=== PATIENT | male | born 1955 | race Caucasian/White ===

== ENCOUNTER 2017-08-27 07:30 | Emergency (ER) | payer BC ==
[~2017-08-27] VITALS: Ht 182.9 cm; Wt 105.0 kg
[~2017-08-27 07:30] MED LIST: ASPI81TA30 PO; CARV-50 PO; LISI10TA PO; METF500T PO; PRAV20TA4 PO
[2017-08-27] MEDS ORDERED: normal saline 1000ML IV soln IVB ONE ×2 (08:10→09:05)
[2017-08-27 08:35] LABS: BASOPHILS % (AUTO) 0.1 % (0-1); EOSINOPHILS # (AUTO) 0.1 X10'3 (0-0.9); EOSINOPHILS % (AUTO) 0.7 % (0-6); HEMATOCRIT 38.6 % (42.0-52.0); HEMOGLOBIN 13.6 g/dl (14.0-17.9); LYMPHOCYTES # (AUTO) 0.6 X10'3 (1.1-4.8); LYMPHOCYTES % (AUTO) 6.7 % (21-51); MEAN CORPUSCULAR HEMOGLOBIN 30.3 PG (27.0-31.0); MEAN CORPUSCULAR HGB CONC 35.4 % (33.0-36.5); MEAN CORPUSCULAR VOLUME 85.6 FL (78-98); MEAN PLATELET VOLUME 8.1 FL (7.4-10.4); MONOCYTES # (AUTO) 0.8 X10'3 (0-0.9); MONOCYTES % (AUTO) 9.4 % (2-12); NEUTROPHILS % (AUTO) 83.1 % (42-75); PLATELET COUNT 247 X10'3 (140-440); RED BLOOD COUNT 4.51 X10'6 (4.70-6.10); RED CELL DISTRIBUTION WIDTH 13.2 % (11.5-14.5); WHITE BLOOD COUNT 8.5 X10'3 (4.5-11.0)
[2017-08-27 08:51] LABS: ALANINE AMINOTRANSFERASE 43 U/L (12-78); ALBUMIN 2.6 G/DL (3.4-5.0); ALBUMIN/GLOBULIN RATIO 0.6 (1.1-1.5); ALKALINE PHOSPHATASE 81 IU/L (46-116); ANION GAP 5 (8-16); ASPARTATE AMINO TRANSFERASE 21 U/L (10-37); BLOOD UREA NITROGEN 20 MG/DL (7-18); BUN/CREATININE RATIO 12.7 (5.4-32.0); CALCIUM 8.8 MG/DL (8.5-10.1); CHLORIDE 91 MMOL/L (99-107); CREATININE 1.57 MG/DL (0.60-1.10); POTASSIUM 4.2 MMOL/L (3.5-5.1); SODIUM 128 MMOL/L (135-145); eGFR 45 ML/MIN
[2017-08-27 08:53] LABS: GLUCOSE 510 MG/DL (70-104)
[2017-08-27] MEDS ORDERED: insulin regular, human 10 units/0.1 ml syringe IV ONE (09:05)
[2017-08-27 11:31] VITALS: BP 111/54
== END 2017-08-27 11:33 | disposition home or self-care (01) ==
LOC: ER 07:31
DX: E11.65 Type 2 diabetes mellitus with hyperglycemia (principal); R19.7 Diarrhea, unspecified; I10 Essential (primary) hypertension; Z86.718 Personal history of other venous thrombosis and embolism; Z79.82 Long term (current) use of aspirin; Z79.84 Long term (current) use of oral hypoglycemic drugs; Z79.899 Other long term (current) drug therapy
CPT/HCPCS: 36415; 80053; 82948; 85025; 96361; 96374; 99285; J1815; J7030

== ENCOUNTER 2021-12-08 14:01 | Inpatient (IN) | payer MEDICAID ==
[~2021-12-08] VITALS: Ht 180.3 cm; Wt 105.0 kg
--- NOTE | 2021-12-08 15:18 | NUR ---
Patient in room [facility]A. I have received report from KEV GUTIERREZ FROM OUTPATIENT WOUND CARE and had the opportunity to ask questions and assume patient care.
[2021-12-08] MEDS ORDERED: dextrose 50%-water 50ml dispensing syringe IV PRN ×2 (15:20)
[2021-12-08] MEDS ORDERED: HYDROmorphone/PF 0.2 MG/ML SYRINGE IV PRN (15:20)
[2021-12-08] MEDS ORDERED: magnesium 4gm in 100ml NS 100 ML IV PRN (15:20)
[2021-12-08] MEDS ORDERED: mag hydrox/Alum hydrox/simeth 30ml oral suspension PO PRN (15:20)
[2021-12-08] MEDS ORDERED: POTASSIUM BICARB 20meq eff tab 20 MEQ TABLET.EFF PO PRN (15:20)
[2021-12-08] MEDS ORDERED: magnesium Cl slow-release 64mg tablet PO PRN (15:20)
[2021-12-08] MEDS ORDERED: ondansetron 4mg rapidly disintigrating tab PO PRN (15:20)
[2021-12-08] MEDS ORDERED: HYDROcodone/acetaminophen 5mg/325mg tablet PO PRN (15:20)
[2021-12-08] MEDS ORDERED: DEXTROSE 15 GM of carb/4 tabs (each vial/BOTTLE has 4 tablets) PO PRN ×2 (15:20)
[2021-12-08] MEDS ORDERED: HYDROmorphone inj. 0.5 MG/0.5 ML DISP.SYRIN IV PRN (15:20)
[2021-12-08] MEDS ORDERED: PERFLUTREN PROTEIN-A MICROSPHR (Optison) 0.22 MG/ML 3ML VIAL IV ONE (15:20)
[2021-12-08] MEDS ORDERED: MESSAGE TO PHARMACY PO ONE (15:20)
[2021-12-08] MEDS ORDERED: magnesium 2GM in 50ml NS 50 ML IV PRN (15:20)
[2021-12-08] MEDS ORDERED: magnesium hydroxide 30ml (MOM) UD suspension PO PRN (15:20)
[2021-12-08] MEDS ORDERED: glucagon, human recombinant 1mg kit SUBCUT PRN (15:20)
[2021-12-08] MEDS ORDERED: insulin Lispro (HumaLOG) vial - multi-dose SQ SCH (15:20)
[2021-12-08] MEDS ORDERED: potassium CL 10mEq/100ml bag 100 ML IV PRN (15:20)
[2021-12-08] MEDS ORDERED: acetaminophen 325mg tablet PO PRN ×2 (15:20)
[2021-12-08] MEDS ORDERED: bisacodyl 10mg suppository rectal RC PRN (15:20)
[2021-12-08] MEDS ORDERED: ondansetron/PF 4mg/2ml inj IV PRN (15:20)
[2021-12-08 15:55] LABS: HEMOGLOBIN A1C 8.5 % (4.5-6.2)
[2021-12-08] MEDS ORDERED: PRAV40TA3 PO (15:55)
[2021-12-08] MEDS ORDERED: TRAZ-251 PO (15:55)
[2021-12-08] MEDS ORDERED: LISI20TA28 PO (15:55)
[2021-12-08] MEDS ORDERED: CETI10TA14 PO (15:55)
[2021-12-08] MEDS ORDERED: LIRA0.6P2 SQ (15:55)
[2021-12-08] MEDS ORDERED: DAPA10TA PO (15:55)
[2021-12-08] MEDS ORDERED: ESCI20TA39 PO (15:55)
[2021-12-08] MEDS ORDERED: HYDR-3972 PO (15:55)
[2021-12-08] MEDS ORDERED: PIOG45TA64 PO (15:55)
[2021-12-08 16:03] LABS: APTT 30 SECONDS (22-32)
[2021-12-08 18:27] VITALS: BP 155/82
[2021-12-08] MEDS: K and/or MAG REPLACEMENT MC SCH (19:41)
[2021-12-08] MEDS: HYDROcodone/acetaminophen 10/325mg tab PO PRN (19:54)
[2021-12-08] MEDS: normal saline 1000ml 1,000 ML IV SCH (19:54)
[2021-12-08] MEDS: docusate sod 100mg capsule PO SCH (19:54)
--- NOTE | 2021-12-08 20:17 | NUR ---
Problems reprioritized. Patient report given, questions answered & plan of care reviewed with KEV MORAN.
[2021-12-08 20:43] LABS: ALANINE AMINOTRANSFERASE 14 U/L (12-78); ALBUMIN 2.4 G/DL (3.4-5.0); ALBUMIN/GLOBULIN RATIO 0.5 (1.1-1.5); ALKALINE PHOSPHATASE 77 IU/L (46-116); ANION GAP 12 (8-16); ASPARTATE AMINO TRANSFERASE 11 U/L (10-37); BILIRUBIN,TOTAL 0.4 MG/DL (0.1-1.0); BLOOD UREA NITROGEN 16 MG/DL (7-18); BUN/CREATININE RATIO 15.7 (5.4-32.0); CALCIUM 10.1 MG/DL (8.5-10.1); CHLORIDE 97 MMOL/L (99-107); CREATININE 1.02 MG/DL (0.60-1.10); GLUCOSE 225 MG/DL (70-104); SODIUM 136 MMOL/L (135-145); TOTAL CARBON DIOXIDE 27.4 MMOL/L (24-32); TOTAL PROTEIN 7.4 G/DL (6.4-8.2); eGFR 74 ML/MIN
[2021-12-08] MEDS: traZODone 50mg tablet PO SCH (21:00)
[2021-12-08] MEDS ORDERED: temazepam 15mg capsule PO PRN (21:00)
[2021-12-08] MEDS: insulin glargine (Lantus) pen - multi-dose SQ SCH (21:49)
[2021-12-08 23:03] VITALS: BP 166/88
--- NOTE | 2021-12-08 23:05 | NUR ---
Charting by Adilene MARS reviewed by Virginia Irving RN
[2021-12-09] VITALS (19 sets, daily range): BP systolic 111–181; BP diastolic 64–88
[2021-12-09] MEDS: HYDROcodone/acetaminophen 10/325mg tab PO PRN ×3 (00:39→20:44)
[2021-12-09] MEDS: normal saline 1000ml 1,000 ML IV SCH ×3 (01:20→22:18)
[2021-12-09 06:15] LABS: BASOPHILS # (AUTO) 0.1 X10'3 (0-0.2); BASOPHILS % (AUTO) 0.4 % (0-1); EOSINOPHILS # (AUTO) 0.4 X10'3 (0-0.9); EOSINOPHILS % (AUTO) 3.3 % (0-6); HEMATOCRIT 41.9 % (42.0-52.0); HEMOGLOBIN 13.7 g/dl (14.0-17.9); LYMPHOCYTES # (AUTO) 2.2 X10'3 (1.1-4.8); LYMPHOCYTES % (AUTO) 18.2 % (21-51); MEAN CORPUSCULAR HEMOGLOBIN 27.4 PG (27.0-31.0); MEAN CORPUSCULAR HGB CONC 32.7 g/dL (33.0-36.5); MEAN CORPUSCULAR VOLUME 83.7 FL (78-98); MEAN PLATELET VOLUME 7.1 FL (7.4-10.4); MONOCYTES # (AUTO) 1.3 X10'3 (0-0.9); MONOCYTES % (AUTO) 10.9 % (2-12); NEUTROPHILS # (AUTO) 8.2 X10'3 (1.8-7.7); NEUTROPHILS % (AUTO) 67.2 % (42-75); PLATELET COUNT 479 X10'3 (140-440); RED BLOOD COUNT 5.01 X10'6 (4.70-6.10); RED CELL DISTRIBUTION WIDTH 13.6 % (11.5-14.5); WHITE BLOOD COUNT 12.2 X10'3 (4.5-11.0)
[2021-12-09 06:45] LABS: ALANINE AMINOTRANSFERASE 15 U/L (12-78); ALBUMIN 2.7 G/DL (3.4-5.0); ALBUMIN/GLOBULIN RATIO 0.5 (1.1-1.5); ALKALINE PHOSPHATASE 84 IU/L (46-116); ANION GAP 13 (8-16); ASPARTATE AMINO TRANSFERASE 17 U/L (10-37); BILIRUBIN,TOTAL 0.3 MG/DL (0.1-1.0); BLOOD UREA NITROGEN 14 MG/DL (7-18); BUN/CREATININE RATIO 13.2 (5.4-32.0); CALCIUM 9.7 MG/DL (8.5-10.1); CHLORIDE 97 MMOL/L (99-107); CHOL/HDL RATIO 5.3 (0.00-4.99); CHOLESTEROL 186 MG/DL (0-200); CREATININE 1.06 MG/DL (0.60-1.10); GLUCOSE 135 MG/DL (70-104); HDL CHOLESTEROL 35 MG/DL (35-60); LDL CHOLESTEROL 113 MG/DL (50-100); MAGNESIUM 2.1 MG/DL (1.5-2.4); POTASSIUM 3.1 MMOL/L (3.5-5.1); SODIUM 136 MMOL/L (135-145); TOTAL CARBON DIOXIDE 25.7 MMOL/L (24-32); TOTAL PROTEIN 8.1 G/DL (6.4-8.2); TRIGLYCERIDES 183 MG/DL (20-135); eGFR 70 ML/MIN
[2021-12-09] MEDS ORDERED: sevoflurane 250ml liquid IH ONE (07:31)
[2021-12-09] MEDS ORDERED: midazolam 1 mg/ML 2ml injection ONE (07:33)
[2021-12-09] MEDS ORDERED: fentaNYL/PF 50MCG/1 ML 2ML syringe ONE (07:43)
[2021-12-09] MEDS ORDERED: propofol inj 20 ML IV ONE (07:50)
[2021-12-09] MEDS ORDERED: LIDOcaine 2% (20mg/ml) 5ml vial ONE (07:50)
[2021-12-09] MEDS ORDERED: ROPIVAcaine 0.5% (5mg/ml) 30ml vial ONE (07:50)
[2021-12-09] MEDS ORDERED: ondansetron/PF 4mg/2ml inj ONE (07:51)
[2021-12-09] MEDS ORDERED: vancomycin 1,000mg inj ONE ×2 (07:51→08:27)
[2021-12-09] MEDS: K and/or MAG REPLACEMENT MC SCH ×2 (08:00→20:00)
[2021-12-09] MEDS: LIRAGLUTIDE 0.6 MG/0.1 ML PEN.INJCTR SQ SCH (08:00)
[2021-12-09] MEDS ORDERED: atorvastatin 10mg tablet PO SCH (08:00)
--- NOTE | 2021-12-09 08:11 | NUR ---
Received from OR via BED, accompanied by Anesthesiologist and report given by ADITHYA Anesthesiologist. PATIENT WAKING UP, DENIES PAIN, V/S WNL, 20G TO LEFT FOREARM, DRESSING to LEFT FOOT C/D/I. Addendum: 12/09/21 at 0829 by Toro Brown RN Amended: Links added.
--- NOTE | 2021-12-09 09:03 | NUR ---
Diabetes consult: Pt w/ hx of DM A1c 8.5 per EMR. Pt admitted w/ L foot cellulitis w/ gangrene of toe, going for amputation of left third toe and irrigation debridement of the foot today per MD note. Will provide DM ed once appropriate s/p procedure Addendum: 12/09/21 at [address] Amended: Links added.
--- NOTE | 2021-12-09 09:26 | NUR ---
PATIENT HAS MET ALL CRITERIA FOR TRANSFER TO SURGICAL FLOOR. VSS. DRESSINGS INTACT. BED LOW, CALL LIGHT PRESENT AND 2 RAILS UP. RN PRESENT TO ACCEPT CARE OF PATIENT AND REPORT HAS BEEN CALLED. ALL QUESTIONS ANSWERED TO ACCEPTING RN. Addendum: 12/09/21 at 0936 by Toro Brown RN Amended: Links added.
[2021-12-09] MEDS: pioglitazone 45mg tablet PO SCH (11:19)
[2021-12-09] MEDS: docusate sod 100mg capsule PO SCH (11:20)
[2021-12-09] MEDS: DAPAGLIFLOZIN 10MG TABLET PO SCH (11:20)
[2021-12-09] MEDS: ESCITALOPRAM OXALATE 5 MG TABLET PO SCH (11:21)
[2021-12-09] MEDS: lisinopril 20mg tablet PO SCH (11:22)
[2021-12-09] MEDS: POTASSIUM BICARB 20meq eff tab 20 MEQ TABLET.EFF PO PRN ×3 (11:23→20:48)
[2021-12-09] MEDS: vancomycin/NS 1 GM ADD-VANTAGE 250 ML IV SCH (16:00)
[2021-12-09] MEDS: loperamide 2mg capsule PO PRN (17:31)
[2021-12-09] MEDS: piperacillin/tazo 3.375gm/50ml 50 ML IV SCH (17:52)
[2021-12-09] MEDS: cefazolin/dext.iso 2gm/100ml 100 ML IV SCH (17:52)
--- NOTE | 2021-12-09 18:20 | NUR ---
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 Page sent to Dr Hylton, but it is shift change and Iris Simmons RN is assuming care and is aware I have not heard back from the Dr and will page the NOC doctor regarding results.
--- NOTE | 2021-12-09 18:30 | NUR ---
Patient in room [facility]. I have received report from RONNA ANGULO and had the opportunity to ask questions and assume patient care.
[2021-12-09] MEDS: traZODone 50mg tablet PO SCH (20:43)
[2021-12-09] MEDS: insulin glargine (Lantus) pen - multi-dose SQ SCH (22:19)
[2021-12-10] VITALS: BP 118/60
[2021-12-10] MEDS: piperacillin/tazo 3.375gm/50ml 50 ML IV SCH ×2 (00:14→08:49)
[2021-12-10] MEDS: cefazolin/dext.iso 2gm/100ml 100 ML IV SCH ×2 (00:53→07:10)
[2021-12-10] MEDS: vancomycin/NS 1 GM ADD-VANTAGE 250 ML IV SCH (04:04)
[2021-12-10] MEDS: HYDROcodone/acetaminophen 10/325mg tab PO PRN ×3 (05:40→12:50)
--- NOTE | 2021-12-10 06:35 | NUR ---
Problems reprioritized. Patient report given, questions answered & plan of care reviewed with ANA ANGULO.
[2021-12-10 06:36] LABS: BASOPHILS % (AUTO) 0.6 % (0-1); EOSINOPHILS # (AUTO) 0.4 X10'3 (0-0.9); EOSINOPHILS % (AUTO) 4.3 % (0-6); HEMATOCRIT 35.1 % (42.0-52.0); HEMOGLOBIN 11.8 g/dl (14.0-17.9); LYMPHOCYTES # (AUTO) 0.9 X10'3 (1.1-4.8); LYMPHOCYTES % (AUTO) 11.2 % (21-51); MEAN CORPUSCULAR HEMOGLOBIN 27.8 PG (27.0-31.0); MEAN CORPUSCULAR HGB CONC 33.6 g/dL (33.0-36.5); MEAN CORPUSCULAR VOLUME 82.7 FL (78-98); MEAN PLATELET VOLUME 7.2 FL (7.4-10.4); MONOCYTES # (AUTO) 0.9 X10'3 (0-0.9); MONOCYTES % (AUTO) 11.3 % (2-12); NEUTROPHILS % (AUTO) 72.6 % (42-75); PLATELET COUNT 330 X10'3 (140-440); RED BLOOD COUNT 4.25 X10'6 (4.70-6.10); RED CELL DISTRIBUTION WIDTH 13.8 % (11.5-14.5); WHITE BLOOD COUNT 8.3 X10'3 (4.5-11.0)
--- NOTE | 2021-12-10 06:46 | NUR ---
Patient in room [facility]. I have received report from Iris Simmons RN and had the opportunity to ask questions and assume patient care.
[2021-12-10 06:54] LABS: ALANINE AMINOTRANSFERASE 13 U/L (12-78); ALBUMIN/GLOBULIN RATIO 0.5 (1.1-1.5); ALKALINE PHOSPHATASE 63 IU/L (46-116); ANION GAP 10 (8-16); ASPARTATE AMINO TRANSFERASE 14 U/L (10-37); BILIRUBIN,TOTAL 0.3 MG/DL (0.1-1.0); BLOOD UREA NITROGEN 11 MG/DL (7-18); BUN/CREATININE RATIO 13.9 (5.4-32.0); CALCIUM 8.2 MG/DL (8.5-10.1); CHLORIDE 101 MMOL/L (99-107); CREATININE 0.79 MG/DL (0.60-1.10); GLUCOSE 117 MG/DL (70-104); MAGNESIUM 1.8 MG/DL (1.5-2.4); POTASSIUM 3.8 MMOL/L (3.5-5.1); SODIUM 139 MMOL/L (135-145); TOTAL CARBON DIOXIDE 27.7 MMOL/L (24-32); TOTAL PROTEIN 6.1 G/DL (6.4-8.2); eGFR > 90 ML/MIN
[2021-12-10 06:58] VITALS: BP 130/71
[2021-12-10] MEDS: normal saline 1000ml 1,000 ML IV SCH ×2 (07:20→17:20)
[2021-12-10] MEDS: K and/or MAG REPLACEMENT MC SCH ×2 (07:22→20:00)
[2021-12-10] MEDS: LIRAGLUTIDE 0.6 MG/0.1 ML PEN.INJCTR SQ SCH (08:00)
[2021-12-10] MEDS: pioglitazone 45mg tablet PO SCH (08:33)
[2021-12-10] MEDS: DAPAGLIFLOZIN 10MG TABLET PO SCH (08:35)
[2021-12-10] MEDS: ESCITALOPRAM OXALATE 5 MG TABLET PO SCH (08:37)
[2021-12-10] MEDS: atorvastatin 20mg tablet PO SCH (08:40)
[2021-12-10] MEDS: lisinopril 20mg tablet PO SCH (08:42)
[2021-12-10 11:00] VITALS: BP 143/71
[2021-12-10] MEDS: ciprofloxacin 250mg tablet PO SCH ×2 (11:09→20:28)
--- NOTE | 2021-12-10 11:30 | NUR ---
DIABETIC FOOT CARE EDUCATION PROVIDED BY WOUND CARE * Wash your feet daily with lukewarm water and soap. * Dry your feet well, especially between the toes. * Keep the skin moisturized with lotion, but do not apply it between the toes. * Check your feet for blisters, cuts or sores. * Use an emery board to shape your toenails even with the ends of your toes. * Change daily into clean, soft socks or stockings, not too big or too small. * Keep your feet warm and dry. * Preferably wear special padded socks and shoes that fit well. * Never walk barefoot indoors or outdoors. * Examine your shoes everyday for cracks, monika, nails or anything that could hurt your feet. * Tell your doctor if you find any of these problems or have any concerns after examining your feet. Addendum: 12/10/21 at 1131 by Poly Grimaldo RN Amended: Links added.
[2021-12-10] MEDS ORDERED: CIPR250T4 PO (15:05)
[2021-12-10] MEDS ORDERED: AMOX-580 PO (15:05)
[2021-12-10] MEDS ORDERED: ATOR40TA PO (15:05)
[2021-12-10] MEDS: amox tr/potassium clavulanate 875/125mg TAB PO SCH (17:31)
[2021-12-10 18:00] VITALS: BP 156/76
--- NOTE | 2021-12-10 18:41 | NUR ---
Problems reprioritized. Patient report given, questions answered & plan of care reviewed with Lyla ANGULO.
[2021-12-10] MEDS: traZODone 50mg tablet PO SCH (20:28)
[2021-12-10] MEDS: insulin glargine (Lantus) pen - multi-dose SQ SCH (21:00)
[2021-12-10 22:00] VITALS: BP 144/69
[2021-12-11] MEDS ORDERED: VANCOMYCIN LEVEL IV ONE (02:30)
[2021-12-11] MEDS: normal saline 1000ml 1,000 ML IV SCH ×2 (03:20→13:20)
[2021-12-11] MEDS: HYDROcodone/acetaminophen 10/325mg tab PO PRN (04:51)
[2021-12-11 06:48] VITALS: BP_SYST 79
[2021-12-11 07:12] LABS: BASOPHILS # (AUTO) 0.1 X10'3 (0-0.2); HEMOGLOBIN 12.2 g/dl (14.0-17.9); LYMPHOCYTES # (AUTO) 1.2 X10'3 (1.1-4.8)
[2021-12-11 07:14] LABS: BASOPHILS % (AUTO) 0.8 % (0-1); EOSINOPHILS # (AUTO) 0.4 X10'3 (0-0.9); EOSINOPHILS % (AUTO) 4.4 % (0-6); HEMATOCRIT 35.8 % (42.0-52.0); MEAN CORPUSCULAR HEMOGLOBIN 28.3 PG (27.0-31.0); MEAN CORPUSCULAR HGB CONC 34.2 g/dL (33.0-36.5); MEAN CORPUSCULAR VOLUME 82.9 FL (78-98); MEAN PLATELET VOLUME 7.8 FL (7.4-10.4); MONOCYTES # (AUTO) 0.9 X10'3 (0-0.9); MONOCYTES % (AUTO) 10.6 % (2-12); NEUTROPHILS # (AUTO) 5.7 X10'3 (1.8-7.7); NEUTROPHILS % (AUTO) 69.2 % (42-75); PLATELET COUNT 269 X10'3 (140-440); RED BLOOD COUNT 4.32 X10'6 (4.70-6.10); RED CELL DISTRIBUTION WIDTH 13.7 % (11.5-14.5); WHITE BLOOD COUNT 8.3 X10'3 (4.5-11.0)
[2021-12-11] MEDS: DAPAGLIFLOZIN 10MG TABLET PO SCH (07:40)
[2021-12-11] MEDS: pioglitazone 45mg tablet PO SCH (07:40)
[2021-12-11] MEDS: amox tr/potassium clavulanate 875/125mg TAB PO SCH (07:40)
[2021-12-11] MEDS: ciprofloxacin 250mg tablet PO SCH (07:43)
[2021-12-11] MEDS: lisinopril 20mg tablet PO SCH (07:43)
[2021-12-11] MEDS: ESCITALOPRAM OXALATE 5 MG TABLET PO SCH (07:43)
[2021-12-11] MEDS: atorvastatin 20mg tablet PO SCH (07:43)
[2021-12-11 07:45] LABS: ALANINE AMINOTRANSFERASE 13 U/L (12-78); ALBUMIN 2.4 G/DL (3.4-5.0); ALBUMIN/GLOBULIN RATIO 0.5 (1.1-1.5); ALKALINE PHOSPHATASE 70 IU/L (46-116); ANION GAP 13 (8-16); ASPARTATE AMINO TRANSFERASE 23 U/L (10-37); BILIRUBIN,TOTAL 0.3 MG/DL (0.1-1.0); BLOOD UREA NITROGEN 11 MG/DL (7-18); BUN/CREATININE RATIO 14.3 (5.4-32.0); CALCIUM 9.1 MG/DL (8.5-10.1); CHLORIDE 101 MMOL/L (99-107); CREATININE 0.77 MG/DL (0.60-1.10); GLUCOSE 112 MG/DL (70-104); SODIUM 137 MMOL/L (135-145); TOTAL CARBON DIOXIDE 23.3 MMOL/L (24-32); TOTAL PROTEIN 6.9 G/DL (6.4-8.2); eGFR > 90 ML/MIN
[2021-12-11] MEDS: K and/or MAG REPLACEMENT MC SCH (08:00)
[2021-12-11] MEDS: LIRAGLUTIDE 0.6 MG/0.1 ML PEN.INJCTR SQ SCH (08:00)
--- NOTE | 2021-12-11 09:06 | NUR ---
Patient found walking self to restroom. Reeducated patient on non weight bearing orders. Patient receptive to education but, making excuses on why he needed to. Also stated he only walked on his heal. educated Patient on reasons for non weight bearing and complications of not complying to recommended orders.
[2021-12-11] MEDS: loperamide 2mg capsule PO PRN (10:12)
[2021-12-11 13:42] VITALS: BP 169/76
--- NOTE | 2021-12-11 16:29 | NUR ---
F/u 12/11: Pt discharged prior to RD visit. Written DM ed w/ RD contact information mailed to pt home address provided in EMR. Addendum: 12/11/21 at [address] Amended: Links added.
--- NOTE | 2021-12-11 17:02 | NUR ---
Patient discharged at 1530, Discharge instructions given, patient and spouse verbalized understanding, Patient had removed IV's prior to this shift with cannulas intact. patient wheeled down to his waiting car.
== END 2021-12-11 15:38 | disposition home or self-care (01) | DRG 314 ==
LOC: SUR 3N 15:06
PROVIDERS: ADMIT Orthopaedic Surgery Orthopaedic Trauma; ATTEND Orthopaedic Surgery Orthopaedic Trauma
PROC: 0LBW0ZZ Excision of Left Foot Tendon, Open Approach (ICD-10-PCS; 2021-12-09)
PROC: 3E0T3BZ Introduction of Anesthetic Agent into Peripheral Nerves and Plexi, Percutaneous Approach (ICD-10-PCS; 2021-12-09)
PROC: 3E0T33Z Introduction of Anti-inflammatory into Peripheral Nerves and Plexi, Percutaneous Approach (ICD-10-PCS; 2021-12-09)
PROC: 0Y6U0Z0 Detachment at Left 3rd Toe, Complete, Open Approach (ICD-10-PCS; principal; 2021-12-09 07:31)
DX: E11.69 Type 2 diabetes mellitus with other specified complication (principal); E11.52 Type 2 diabetes mellitus with diabetic peripheral angiopathy with gangrene; L03.116 Cellulitis of left lower limb; E11.621 Type 2 diabetes mellitus with foot ulcer; E11.42 Type 2 diabetes mellitus with diabetic polyneuropathy; L97.529 Non-pressure chronic ulcer of other part of left foot with unspecified severity; M86.8X7 Other osteomyelitis, ankle and foot; E78.5 Hyperlipidemia, unspecified; G47.33 Obstructive sleep apnea (adult) (pediatric); E11.65 Type 2 diabetes mellitus with hyperglycemia; R21 Rash and other nonspecific skin eruption; I10 Essential (primary) hypertension; Z83.3 Family history of diabetes mellitus; Z87.442 Personal history of urinary calculi; Z79.899 Other long term (current) drug therapy; Z79.82 Long term (current) use of aspirin
CPT/HCPCS: 36415; 71045; 80053; 80061; 82948; 83036; 83735; 84132; 85025; 85610; 85730; 87081; 93306; 93922; 93925; 97116; 97161; 97530; 97542; A4615; A4618; A6222; A6223; A6446; A6449; A7000; G0378; J0690; J1815; J2250; J2405; J2543; J2704; J2795; J3010; J3370; J3490; J7030; J7120

== ENCOUNTER 2022-01-28 12:47 | Emergency (ER) | payer MEDICARE, MEDICAID ==
[~2022-01-28] VITALS: Ht 182.9 cm; Wt 106.8 kg
[~2022-01-28 12:47] MED LIST changes: +AMOX-580 PO; -ASPI81TA30 PO; -CARV-50 PO; +CETI10TA14 PO; +CIPR250T4 PO; +DAPA10TA PO; +ESCI20TA39 PO; +HYDR-3972 PO; +LIRA0.6P2 SQ; -LISI10TA PO; +LISI20TA28 PO; -METF500T PO; +PIOG45TA64 PO; -PRAV20TA4 PO; +TRAZ-251 PO
[2022-01-28 12:50] VITALS: BP 196/86
[2022-01-28] MEDS ORDERED: GABA300C PO (13:50)
[2022-01-28] MEDS ORDERED: TRAZ-256 PO (13:50)
[2022-01-28 14:03] LABS: BASOPHILS # (AUTO) 0.1 X10'3 (0-0.2); BASOPHILS % (AUTO) 0.3 % (0-1); EOSINOPHILS # (AUTO) 0.2 X10'3 (0-0.9); HEMOGLOBIN 12.5 g/dl (14.0-17.9); LYMPHOCYTES # (AUTO) 1.4 X10'3 (1.1-4.8); LYMPHOCYTES % (AUTO) 8.9 % (21-51); MEAN CORPUSCULAR HEMOGLOBIN 26.9 PG (27.0-31.0); MEAN CORPUSCULAR HGB CONC 32.1 g/dL (33.0-36.5); MEAN PLATELET VOLUME 7.7 FL (7.4-10.4); MONOCYTES # (AUTO) 1.5 X10'3 (0-0.9); MONOCYTES % (AUTO) 9.4 % (2-12); NEUTROPHILS # (AUTO) 12.7 X10'3 (1.8-7.7); NEUTROPHILS % (AUTO) 80.4 % (42-75); PLATELET COUNT 397 X10'3 (140-440); RED BLOOD COUNT 4.64 X10'6 (4.70-6.10); RED CELL DISTRIBUTION WIDTH 16.1 % (11.5-14.5); WHITE BLOOD COUNT 15.8 X10'3 (4.5-11.0)
[2022-01-28 14:05] LABS: ALANINE AMINOTRANSFERASE 21 U/L (12-78); ALBUMIN 2.5 G/DL (3.4-5.0); ALBUMIN/GLOBULIN RATIO 0.5 (1.1-1.5); ALKALINE PHOSPHATASE 97 IU/L (46-116); ANION GAP 8 (8-16); ASPARTATE AMINO TRANSFERASE 14 U/L (10-37); BILIRUBIN,TOTAL 0.2 MG/DL (0.1-1.0); BLOOD UREA NITROGEN 20 MG/DL (7-18); BUN/CREATININE RATIO 16.3 (5.4-32.0); CALCIUM 9.3 MG/DL (8.5-10.1); CHLORIDE 96 MMOL/L (99-107); CREATININE 1.23 MG/DL (0.60-1.10); GLUCOSE 445 MG/DL (70-104); POTASSIUM 4.4 MMOL/L (3.5-5.1); SODIUM 130 MMOL/L (135-145); TOTAL CARBON DIOXIDE 26.2 MMOL/L (24-32); TOTAL PROTEIN 7.8 G/DL (6.4-8.2); eGFR 59 ML/MIN
[2022-01-28 14:14] LABS: ETHANOL < 0.010 GM/DL (0.0-0.010)
--- NOTE | 2022-01-28 14:20 | NUR ---
PT AO4 RESP EVEN UNLABORED. DENIES SI SPEAKS CLEARLY AND IN COMPLETE SENTENCES.
== END 2022-01-28 14:23 | disposition home or self-care (01) ==
LOC: ER 12:47
DX: G62.9 Polyneuropathy, unspecified (principal); I10 Essential (primary) hypertension; E11.9 Type 2 diabetes mellitus without complications
CPT/HCPCS: 36415; 80053; 80320; 84443; 85025; 99283

== ENCOUNTER 2022-01-28 22:52 | Emergency (ER) | payer MEDICARE, MEDICAID ==
[~2022-01-28] VITALS: Ht 182.9 cm; Wt 105.0 kg
[~2022-01-28 22:52] MED LIST changes: +GABA300C PO; +TRAZ-256 PO
[2022-01-28 22:59] VITALS: BP 147/102
== END 2022-01-28 23:30 | disposition left against medical advice (07) ==
LOC: ER 22:53
DX: M79.605 Pain in left leg (principal); Z53.21 Procedure and treatment not carried out due to patient leaving prior to being seen by health care provider